=== PATIENT | female | born 1935 | race Caucasian/White ===

== ENCOUNTER 2017-12-12 06:24 | Day surgery (SDC) | payer MEDICARE ==
[~2017-12-12 06:24] MED LIST: Buffered Lidocaine 0.9% SYRIN* 5 ML/SYR SYRINGE INTRADERM ONE
[2017-12-12] MEDS ORDERED: Midazolam* 1 MG/ML 5 ML VIAL (5 MG) ONE (07:18)
[2017-12-12] MEDS ORDERED: fentaNYL* 50 MCG/ML 2 ML VIAL (100 MCG VIAL) ONE (07:18)
[2017-12-12 08:58] VITALS: BP 127/77
[2017-12-12] MEDS ORDERED: Ketorolac 0.5% OPHTH (NF) 0.5 % 5 ML BTL ONE (09:02)
[2017-12-12] MEDS ORDERED: Proparacaine 0.5% OPHTH.SOL* 15 ML BTL ONE (09:02)
[2017-12-12] MEDS ORDERED: Lidocaine 2% EPI 1:200000 MPF*10-20 ML VIAL ONE (09:02)
[2017-12-12] MEDS ORDERED: Lidocaine 1% MPF* 2 ML VIAL ONE (09:02)
[2017-12-12] MEDS ORDERED: Povidone Iodine 5% OPTH* 30 ML BTL ONE (09:02)
[2017-12-12] MEDS ORDERED: Phenylephrine 2.5% OPTH.SOL* 2 ML BTL ONE (09:02)
[2017-12-12] MEDS ORDERED: acetaZOLAMIDE TAB* 250 MG ONE (09:02)
[2017-12-12] MEDS ORDERED: Cyclopentolate 1% OPTH.SOL* 2 ML BTL ONE (09:02)
[2017-12-12] MEDS ORDERED: Neomycin/Polymy/Dex OPTH.SUSP* MAXITROL 0.1% 5 ML ONE (09:02)
--- NOTE | 2017-12-12 22:03 | OP ---
DATE OF OPERATION: 12/12/17 - [facility] DATE OF : 31 SURGEON: Manpreet Zee M.D. PREOPERATIVE DIAGNOSIS: Cataract, left eye. POSTOPERATIVE DIAGNOSIS: Cataract, left eye. OPERATIVE PROCEDURE: Extracapsular cataract extraction with intraocular lens implant, left eye. DESCRIPTION OF PROCEDURE: The patient was brought to the operating room after being given 1/2% Alcaine with epinephrine drops in the preoperative area. The eye was prepped and draped in the usual sterile fashion. Sterile drape and eyelid speculum were placed. Again, topical 1/2% Alcaine with epinephrine was given. A paracentesis incision was made at the 3 o'clock position with the No.75 blade. Clear cornea incision 2.2 x 2.2-mm was created at the 6 o'clock position starting at the anterior limbus using the 2.2-mm keratome. The anterior chamber was irrigated with 0.4 mL of 1% non-preservative intracameral lidocaine and filled with DisCoVisc. A capsulorrhexis was completed using the cystotome and the Utrata forceps. Hydrodissection was performed with balanced salt solution. The lens nucleus was removed with the Phacoemulsification handpiece without incident. Cortex was removed with the irrigation-aspiration handpiece. The capsular bag was re-inflated using DisCoVisc and an SN60WF 19.5 implant was inserted with the shooter. The irrigation-aspiration handpiece was used to remove all residual DisCoVisc. The eye was refilled with balanced salt solution and the wound checked and found to be watertight. Topical Maxitrol drops were given. [id number]/[facility] #: [id number] MTDD
== END 2017-12-12 08:56 | disposition home or self-care (01) ==
LOC: OREAST 06:24
PROVIDERS: ATTEND Specialist
DX: H25.812 Combined forms of age-related cataract, left eye (principal); E11.3293 Type 2 diabetes mellitus with mild nonproliferative diabetic retinopathy without macular edema, bilateral; Z79.84 Long term (current) use of oral hypoglycemic drugs; I10 Essential (primary) hypertension; E03.9 Hypothyroidism, unspecified; D64.9 Anemia, unspecified; I48.91 Unspecified atrial fibrillation; Z79.01 Long term (current) use of anticoagulants; I47.1 Supraventricular tachycardia; Z95.2 Presence of prosthetic heart valve
CPT/HCPCS: A9270-GY; J2250; J3010; V2632

== ENCOUNTER 2017-12-26 06:31 | Day surgery (SDC) | payer MEDICARE ==
[~2017-12-26 06:31] MED LIST changes: +Acetaminophen TAB* 325 MG PO PRN
[2017-12-26] MEDS ORDERED: Midazolam* 1 MG/ML 2 ML VIAL (2 MG) ONE (08:25)
[2017-12-26 08:59] VITALS: BP 130/91
[2017-12-26] MEDS ORDERED: Neomycin/Polymy/Dex OPTH.SUSP* MAXITROL 0.1% 5 ML ONE (13:25)
[2017-12-26] MEDS ORDERED: Ketorolac 0.5% OPHTH (NF) 0.5 % 5 ML BTL ONE (13:25)
[2017-12-26] MEDS ORDERED: Cyclopentolate 1% OPTH.SOL* 2 ML BTL ONE (13:25)
[2017-12-26] MEDS ORDERED: Phenylephrine 2.5% OPTH.SOL* 2 ML BTL ONE (13:25)
[2017-12-26] MEDS ORDERED: Povidone Iodine 5% OPTH* 30 ML BTL ONE (13:25)
[2017-12-26] MEDS ORDERED: Proparacaine 0.5% OPHTH.SOL* 15 ML BTL ONE (13:25)
[2017-12-26] MEDS ORDERED: Lidocaine 2% EPI 1:200000 MPF*10-20 ML VIAL ONE (13:25)
[2017-12-26] MEDS ORDERED: Lidocaine 1% MPF* 2 ML VIAL ONE (13:56)
--- NOTE | 2017-12-27 04:15 | OP ---
DATE OF OPERATION: 12/26/17 [facility] DATE OF : 31 SURGEON: Manpreet Zee M.D. PREOPERATIVE DIAGNOSIS: Cataract, right eye. POSTOPERATIVE DIAGNOSIS: Cataract, right eye. OPERATIVE PROCEDURE: Extracapsular cataract extraction with intraocular lens implant, right eye. DESCRIPTION OF PROCEDURE: The patient was brought to the operating room after being given 1/2% Alcaine with epinephrine drops in the preoperative area. The eye was prepped and draped in the usual sterile fashion. Sterile drape and eyelid speculum were placed. Again, topical 1/2% Alcaine with epinephrine was given. A paracentesis incision was made at the 9 o'clock position with the No.75 blade. Clear cornea incision 2.2 x 2.2-mm was created at the 12 o'clock position starting at the anterior limbus using the 2.2-mm keratome. The anterior chamber was irrigated with 0.4 mL of 1% non-preservative intracameral lidocaine and filled with DisCoVisc. A capsulorrhexis was completed using the cystotome and the Utrata forceps. Hydrodissection was performed with balanced salt solution. The lens nucleus was removed with the Phacoemulsification handpiece without incident. Cortex was removed with the irrigation-aspiration handpiece. The capsular bag was re-inflated using DisCoVisc and an [id number] 19.5 implant was inserted with the shooter. The irrigation-aspiration handpiece was used to remove all residual DisCoVisc. The eye was refilled with balanced salt solution and the wound checked and found to be watertight. Topical Maxitrol drops were given. [id number]/[facility] #: [id number] MTDD
== END 2017-12-26 09:13 | disposition home or self-care (01) ==
LOC: OREAST 06:31
PROVIDERS: ATTEND Specialist
DX: H25.811 Combined forms of age-related cataract, right eye (principal); E11.3293 Type 2 diabetes mellitus with mild nonproliferative diabetic retinopathy without macular edema, bilateral; Z79.84 Long term (current) use of oral hypoglycemic drugs; Z79.01 Long term (current) use of anticoagulants; I45.81 Long QT syndrome; I48.2 Chronic atrial fibrillation; Z95.2 Presence of prosthetic heart valve; I10 Essential (primary) hypertension; E03.9 Hypothyroidism, unspecified; G47.30 Sleep apnea, unspecified; M19.90 Unspecified osteoarthritis, unspecified site; Z79.899 Other long term (current) drug therapy
CPT/HCPCS: A9270-GY; J2250; V2632

== ENCOUNTER 2018-09-02 20:52 | Inpatient (IN) | payer MEDICARE ==
--- NOTE | 2018-09-02 21:45 | ED ---
Complex/Multi-Sys Presentation - HPI Summary HPI Summary: Patient is a 83 y/o F presenting to ED with complaints of fever, increased weakness, poor appetite, fatigue, and chills since yesterday. Daughter reports that she measured patient's temp to be 101.2. She denies cough, SOB. Hx of PNA, afib, atrial value replacement in 1999. Patient is on digoxin. On triage, pain is denied, nothing is noted to aggravate/alleviate Sx. Home medications and allergies are reviewed. - History Of Current Complaint Chief Complaint: EDFever Time Seen by Provider: 09/02/18 21:31 Hx Obtained From: Patient Onset/Duration: Lasting Days - since yesterday, Still Present Timing: Constant, Days - since yesterday Severity Currently: None Location: Negative Aggravating Factor(s): nothing Alleviating Factor(s): nothing Associated Signs And Symptoms: Positive: Weakness, Fever, Other - POSITIVE - POOR APPETITE, CHILLS, FATIGUE. Negative: SOB, Cough - Allergies/Home Medications Allergies/Adverse Reactions: Allergies Allergy/AdvReac Type Severity Reaction Status Date / Time diltiazem Allergy Chest Pain Verified 09/02/18 21:02 pneumococcal vaccine Allergy Swelling Verified 09/02/18 21:02 sulfamethoxazole Allergy See Comment Verified 09/02/18 21:02 [From Bactrim] trimethoprim [From Bactrim] Allergy See Comment Verified 09/02/18 21:02 acetaminophen AdvReac Unknown Verified 09/02/18 21:02 Reaction Details cephalexin AdvReac Diarrhea Verified 09/02/18 21:02 hydromorphone AdvReac Unknown Verified 09/02/18 21:02 Reaction Details lorazepam AdvReac Unknown Verified 09/02/18 21:02 Reaction Details morphine AdvReac Pain Verified 09/02/18 21:02 PMH/Surg Hx/FS Hx/Imm Hx Endocrine/Hematology History: Reports: Hx Anticoagulant Therapy - Warferin, Hx Diabetes, Hx Thyroid Disease - hypo, Hx Anemia Cardiovascular History: Reports: Hx Congestive Heart Failure, Hx Hypertension, Hx Peripheral Vascular Disease - Venous insufficiency bilateral lower extremities, Hx Rheumatic Fever - Age [age] years old, Hx Valvular Heart Disease - rheumatic, Other Cardiovascular Problems/Disorders - hemothorax Denies: Hx Pacemaker/ICD Respiratory History: Reports: Hx Chronic Obstructive Pulmonary Disease (COPD), Hx Sleep Apnea, Other Respiratory Problems/Disorders - SLEEP APNEA Denies: Hx Asthma GI History: Reports: Other GI Disorders - Diverticulosis Denies: Hx Irritable Bowel, Hx Jaundice History: Reports: Other Problems/Disorders - Frequent urination, UTI x1 Denies: Hx Renal Disease Musculoskeletal History: Reports: Hx Arthritis - Osteoarthritis, Hx Back Problems, Other Musculoskeletal History - R TKA Sensory History: Reports: Hx Cataracts - bilateral, Hx Contacts or Glasses - reading Denies: Hx Hearing Aid Opthamlomology History: Reports: Hx Cataracts - bilateral, Hx Contacts or Glasses - reading Neurological History: Denies: Hx Dementia, Hx Seizures, Other Neuro Impairments/Disorders Psychiatric History: Denies: Hx Substance Abuse - Cancer History Hx Chemotherapy: No Hx Radiation Therapy: No - Surgical History Surgery Procedure, Year, and Place: AVR [facility] 2000. TKR Right. Tubal Ligation. [place]. tonsilectomy as child Hx Anesthesia Reactions: No Infectious Disease History: No Infectious Disease History: Denies: Hx Clostridium Difficile, Hx Hepatitis, Hx Human Immunodeficiency Virus (HIV), Hx of Known/Suspected MRSA, Hx Shingles, Hx Tuberculosis, Hx Known/ Suspected VRE, Hx Known/Suspected VRSA, History Other Infectious Disease, Traveled Outside the [place] in Last 30 Days - Family History Known Family History: Negative: Blood Disorder - Social History Alcohol Use: None Substance Use Type: Reports: None Hx Tobacco Use: No Smoking Status (MU): Never Smoked Tobacco Have You Smoked in the Last Year: No Review of Systems Positive: Fever, Chills, Fatigue, Other - POSITIVE - WEAKNESS Negative: Shortness Of Breath, Cough Gastrointestinal: Other - POSITIVE - POOR APPETITE All Other Systems Reviewed And Are Negative: Yes Physical Exam - Summary Physical Exam Summary: VITAL SIGNS: Reviewed. GENERAL: Patient is a well-developed and morbidly obese female who is lying comfortable in the stretcher. Patient is not in any acute respiratory distress. HEAD AND FACE: No signs of trauma. No ecchymosis, hematomas or skull depressions. No sinus tenderness. EYES: PERRLA, EOMI x 2, No injected conjunctiva, no nystagmus. EARS: Hearing grossly intact. Ear canals and tympanic membranes are within normal limits. MOUTH: Oropharynx within normal limits. NECK: Supple, trachea is midline, no adenopathy, no JVD, no carotid bruit, no c- spine tenderness, neck with full ROM. CHEST: Symmetric, no tenderness at palpation LUNGS: decreased breath sounds bilaterally. No wheezing or crackles. CVS: Regular rate and rhythm, S1 and S2 present, no murmurs or gallops appreciated. ABDOMEN: Soft, non-tender. No signs of distention. No rebound no guarding, and no masses palpated. Bowel sounds are normal. EXTREMITIES: FROM in all major joints, no edema, no cyanosis or clubbing. NEURO: Alert and oriented x 3. No acute neurological deficits. Speech is normal and follows commands. SKIN: Dry and warm Triage Information Reviewed: Yes Vital Signs On Initial Exam: Initial Vitals Temp Pulse Resp BP Pulse Ox 101.4 F 93 20 130/70 95 09/02/18 20:57 09/02/18 20:57 09/02/18 20:57 09/02/18 20:57 09/02/18 20:57 Vital Signs Reviewed: Yes Diagnostics - Vital Signs Vital Signs Temp Pulse Resp BP Pulse Ox 09/02/18 20:57 101.4 F 93 20 130/70 95 - Laboratory Result Diagrams: 09/02/18 22:16 09/02/18 22:16 Lab Statement: Any lab studies that have been ordered have been reviewed, and results considered in the medical decision making process. - Radiology CXR Radiology Interpretation Completed By: ED Physician Summary of Radiographic Findings: BILATERAL BASILAR INFLITRATE, RIGHT MORE THAN LEFT - EKG 2305 Cardiac Rate: Other Rate - afib with rate of 91 BPM EKG Rhythm: Atrial Fibrillation Summary of EKG Findings: EKG showed afib with rate of 91 BPM Complex Multi-Symp Course/Dx Course Of Treatment: Patient is a 83 y/o F presenting to ED with complaints of fever, increased weakness, poor appetite, fatigue, and chills since yesterday. Daughter reports that she measured patient's temp to be 101.2. She denies cough , SOB. Hx of PNA, afib, atrial value replacement in 1999. Patient is on digoxin. On physical exam, patient is noted to be morbidly obese, decreased breath sounds bilaterally. Labs showed CRP 112.86, BNP 187, glucose 178, creatinine 1.02, chloride 96, sodium 129, INR 1.66, WBC 7.3, RBC 3.93. Digoxin 1.1. Influenza A, B negative. During ED course, patient was given Tylenol 650 mg PO ED, fluids, and Levaquin 750 mg IVpremix. EKG showed afib with rate of 91 BPM. CXR: BILATERAL BASILAR INFLITRATE, RIGHT MORE THAN LEFT. Patient was not given fluid as per sepsis proctol due to her cardiac history. - Diagnoses Provider Diagnoses: PNA (pneumonia) - Physician Notifications Discussed Care Of Patient With: Ashley Dunn Time Discussed With Above Provider: 22:57 Instructed by Provider To: Other - Patient's case was discussed with Dr. Dunn, Dr. Dunn accepts the patient for admission. Discharge - Sign-Out/Discharge Documenting (check all that apply): Patient Departure - admit - Discharge Plan Condition: Good Disposition: ADMITTED TO [facility] - Billing Disposition and Condition Condition: GOOD Disposition: Admitted to [facility] - Attestation Statements Document Initiated by Pranaye: Yes Documenting Scribe: PILI CARBONE Provider For Whom Pranaye is Documenting (Include Credential): MAGGIE BUENROSTRO MD Scribe Attestation: PILI Lyman , scribed for MAGGIE BUENROSTRO MD on 09/03/18 at 0430. Scribe Documentation Reviewed: Yes Provider Attestation: The documentation as recorded by the PILI lam accurately reflects the service I personally performed and the decisions made by me, MAGGIE BUENROSTRO MD Status of Scribe Document: Viewed
[2018-09-02] MEDS ORDERED: Acetaminophen TAB* 325 MG PO ONE (21:55)
[2018-09-02] MEDS ORDERED: Levofloxacin 750 MG IVPREMIX(* 750 MG/150 ML BAG IVPB ONE (21:56)
[2018-09-02] MEDS ORDERED: NS 0.9% 1000 ML* 1,000 ML IV ONE (22:14)
[2018-09-02 22:24] LABS: ABS Basophils 0.1 10^3/ul (0-0.2); ABS Eosinophils 0 10^3/ul (0-0.6); ABS Lymphocytes 0.9 10^3/ul (1.0-4.8); ABS Monocytes 1.3 10^3/ul (0-0.8); ABS Nucleated RBC 0 10^3/ul; Eosinophil % 0.3 %; Hematocrit 36 % (35-47); Hemoglobin 12.3 g/dl (12.0-16.0); Lymphocyte % 12.2 %; Mean Corpuscular HGB Conc 34 g/dl (31-36); Mean Corpuscular Hemoglobin 31 pg (27-31); Mean Corpuscular Volume 92 fL (80-97); Nucleated Red Blood Cells % 0; Platelet Count 167 10^3/ul (150-450); Red Blood Count 3.93 10^6/ul (4.00-5.40); Red Cell Distribution Width 14 % (10.5-15); White Blood Count 7.3 10^3/ul (3.5-10.8)
[2018-09-02 22:35] LABS: Activated Partial Thrombo Time 31.8 seconds (26.0-36.3); INR 1.66 (0.77-1.02)
[2018-09-02 22:39] LABS: Albumin 3.4 g/dL (3.2-5.2); Albumin/Globulin Ratio 0.8 (1-3); BUN/Creatinine Ratio 23.5 (8-20); C Reactive Protein 112.86 mg/L (<8.01); Calcium 9.2 mg/dL (8.6-10.3); EGFR African American 62.3 (>60); EGFR Non-African American 51.5 (>60); Globulin 4.2 g/dL (2-4); Potassium 4.3 mmol/L (3.5-5.0); Total Bilirubin 0.9 mg/dL (0.2-1.0); Total Protein 7.6 g/dL (6.4-8.9)
[2018-09-02 22:40] LABS: Influenza A Molecular NEGATIVE (Negative); Influenza B Molecular NEGATIVE (Negative)
[2018-09-02 22:52] LABS: Digoxin 1.1 ng/ml (0.8-2.0)
[2018-09-02] MEDS ORDERED: traMADol TAB* 50 MG PO PRN (23:19)
[2018-09-02] MEDS ORDERED: Albuterol/Ipratropium NEB.SOL* Albuterol 2.5 MG/Ipratropium 0.5 MG 3 ML INH PRN (23:25)
--- NOTE | 2018-09-02 23:25 | ADMNOTE ---
Subjective Date of Service: 09/02/18 Interval History: 83 year old Female with Past medical history of Long Qt syndrome, aortic valve replacement, hypertension, hypothyroidism who presents here because of fever. Patient has not been feeling well for the past few days, feeling tired, fatigues easily, and sleeping a lot. Today she took her temperature and was 101.1F at home, so decided to come to the ED. Over a week ago was having bad cold/sinus congestion. Reports no cough, no shortness of breath. She wears oxygen at night at 3Liters nasal canula. Family is at bedside, who reports that patient had an issue with acetaminophen in the past, and wants us to avoid it- It caused bleeding per family. Family History: Findings - Parents had heart issue Social History: Findings - Lives at home, Does not smoke, no alcohol use Past Medical History: Findings - Long QT syndrome, Hypertension, hypothyroidism , Hx of rheumatic heart disease, aortiv valve replacement, hysterectomy, cholecystectomy Review of Systems - Measurements Intake and Output: Intake and Output Last 24 Hours 08/31/18 09/01/18 09/02/18 09/03/18 06:59 06:59 06:59 06:59 Weight 229 lb - Review of Systems Constitutional Symptoms: Positive: Weakness, Fatigue, Fever Dermatology: Negative: Rash HEENT: Positive: Sinus Problem Negative: Change in Hearing, Vertigo Eyes: Negative: Change in Vision, Double Vision, Eye Pain Thyroid: Negative: Heat Intolerance, Sweatiness, Tremor Pulmonary: Negative: Cough, Sputum, Respiratory Distress Cardiology: Negative: Chest Pain, Shortness of Breath, Palpitations, Syncope Gastroenterology: Negative: Abdominal Pain, Nausea, Vomiting, Constipation Genital - Urinary: Negative: Dysuria, Hematuria, Polyuria Musculoskeletal: Negative: Joint Pain Endocrinology: Positive: Diabetes Mellitus Hematologic/Lymphatic: Positive: Use of Anticoagulant Neurology: Negative: Change in Balancing, Change in Memory Psychiatry: Negative: Anxiety, Depressed Mood Objective Active Medications: Digoxin (Lanoxin Tab*) 0.25 mg PO QPM [facility] Docusate Sodium (Colace Cap*) 100 mg PO BID [facility] Doxycycline Hyclate (Vibramycin Cap(*)) 100 mg PO BID [facility] Ceftriaxone Sodium 1 gm/ (Sodium Chloride) 50 mls @ 200 mls/hr IVPB Q24H [facility] Levothyroxine Sodium (Synthroid Tab*) 125 mcg PO QAM [facility] Non-Formulary Medication (Metoprolol Tartrate) 25 mg PO BID [facility] Tramadol HCl (Ultram*) 50 mg PO Q4HR PRN PRN Reason: PAIN Warfarin Sodium (Coumadin Tab(*)) 7 mg PO SEE INSTRUCTIONS [facility]; Protocol Vital Signs - 8 hr 09/02/18 09/02/18 20:57 22:39 Temperature 101.4 F 101.1 F Pulse Rate 93 99 Respiratory 20 22 Rate Blood Pressure 130/70 103/82 (mmHg) O2 Sat by Pulse 95 94 Oximetry Appearance: Elderly female, well developed, obese, lying in ER stretcher not in distress Ears/Nose/Mouth/Throat: Mucous Membranes Moist Respiratory: - - Mild tachypnea, no use of accessory muscles. Rhonchi at the right lower lobes Cardiovascular: RRR, - - Trace lower extremity edema, soft systolic murmur at the Right upper sternal border Skin: No Rash or Ulcers Neurological: Alert and Oriented x 3 Result Diagrams: 09/02/18 22:16 09/02/18 22:16 Microbiology and Other Data: Microbiology 09/02/18 22:15 Influenza Types A,B Antigen - Final Nasal Specimen received for Influenza A/B Molecular testing Diagnostic Imaging: Chest xray as read by me: Right lower lobe penumonia, official read pending Assess/Plan/Problems-Billing Assessment: 83 year old Female with history of Hypertension, aortic valve replacement, chornic nocturnal oxygen use, here with fever. Admitted for pneumonia - Patient Problems (1) Sepsis due to pneumonia Current Visit: Yes Status: Acute Code(s): J18.9 - PNEUMONIA, UNSPECIFIED ORGANISM; A41.9 - SEPSIS, UNSPECIFIED ORGANISM SNOMED Code(s): 07578612 Comment: Meets sepsis criteria with fever, and HR >90. Will treat with rocephin and doxycyline blood culture sent by ED check sputum culture, urine legionella and strep antigen incentive spirometry, and duonebs PRN (2) Hx of aortic valve replacement Current Visit: Yes Status: Chronic Code(s): Z95.2 - PRESENCE OF PROSTHETIC HEART VALVE SNOMED Code(s): 0187857610190 Comment: continue coumadin. (3) Diabetes Current Visit: Yes Status: Chronic Code(s): E11.9 - TYPE 2 DIABETES MELLITUS WITHOUT COMPLICATIONS SNOMED Code(s): 84923394 Comment: Hold metformin sliding scale insulin (4) HTN (hypertension) Current Visit: No Status: Chronic Code(s): I10 - ESSENTIAL (PRIMARY) HYPERTENSION SNOMED Code(s): 56773353 Comment: controlled (5) Long Q-T syndrome Current Visit: Yes Status: Acute Code(s): I45.81 - LONG QT SYNDROME SNOMED Code(s): 7685906 Comment: history fo long QT, will be cautious of using medicaitons that affect QT. (6) Hyponatremia Current Visit: Yes Status: Acute Code(s): E87.1 - HYPO-OSMOLALITY AND HYPONATREMIA SNOMED Code(s): 17018387 Comment: Hold lasix, monitor BMP. She did receive saline in the ED as a bolus, for now no more IV fluids, will monitor. (7) Full code status Current Visit: Yes Status: Chronic Code(s): Z78.9 - OTHER SPECIFIED HEALTH STATUS SNOMED Code(s): 024743374 Comment: Discussed with family and patient at bedside. They would like full code status. Health care proxy is Daughter: Samra, Medications/Allergies Medications: Home Medications Medication Instructions Recorded Confirmed Type Levothyroxine TAB* [Synthroid TAB*] 125 mcg PO QAM 06/30/12 09/02/18 History traMADol TAB* [Ultram*] 50 mg PO Q4HR PRN 06/30/12 09/02/18 History Warfarin TAB(*) [Coumadin TAB(*)] 7 mg PO SEE INSTRUCTIONS 09/18/13 09/02/18 History Digoxin TAB* [Lanoxin TAB*] 250 mcg PO QPM 05/25/15 09/02/18 History Docusate CAP* [Colace Cap*] 100 mg PO BID 05/25/15 09/02/18 History Furosemide [Lasix] 40 mg PO QAM 12/05/17 09/02/18 History Metoprolol Tartrate 25 mg PO BID 12/05/17 09/02/18 History Potassium Chloride 40 meq PO BID 12/05/17 09/02/18 History Vitamin K 150 mg PO QAM 12/05/17 09/02/18 History metFORMIN* 500 mg PO BID 12/05/17 09/02/18 History Allergies/Adverse Reactions: Allergies Allergy/AdvReac Type Severity Reaction Status Date / Time diltiazem Allergy Chest Pain Verified 09/02/18 21:02 pneumococcal vaccine Allergy Swelling Verified 09/02/18 21:02 sulfamethoxazole Allergy See Comment Verified 09/02/18 21:02 [From Bactrim] trimethoprim [From Bactrim] Allergy See Comment Verified 09/02/18 21:02 acetaminophen AdvReac Unknown Verified 09/02/18 21:02 Reaction Details cephalexin AdvReac Diarrhea Verified 09/02/18 21:02 hydromorphone AdvReac Unknown Verified 09/02/18 21:02 Reaction Details lorazepam AdvReac Unknown Verified 09/02/18 21:02 Reaction Details morphine AdvReac Pain Verified 09/02/18 21:02
[2018-09-02] MEDS ORDERED: Dextrose 50% Syringe 50 ML* 25 GM/50 ML SYRINGE IV PUSH PRN (23:36)
[2018-09-02] MEDS ORDERED: Warfarin TAB(*) 6 MG PO SCH (23:45)
[2018-09-03 00:09] LABS: Urine Appearance Cloudy; Urine Bacteria Absent (Absent); Urine Bilirubin Negative (Negative); Urine Blood Negative (Negative); Urine Color Yellow; Urine Glucose Negative (Negative); Urine Ketones Negative (Negative); Urine Nitrite Negative (Negative); Urine Protein 1+(30 mg/dL) (Negative); Urine Red Blood Cell Trace(0-2/hpf) (Absent); Urine Specific Gravity 1.016 (1.010-1.030); Urine Squamous Epithelial Cell Present (Absent); Urine Urobilinogen Negative (Negative); Urine White Blood Cell 1+(6-10/hpf) (Absent)
[2018-09-03] MEDS: cefTRIAXone(*) 1 GM in NS 0.9% 50 ML* 50 ML IVPB SCH ×2 (01:54→21:32)
[2018-09-03] MEDS: Levothyroxine TAB* 125 MCG TAB PO SCH (05:50)
[2018-09-03 08:27] LABS: ABS Basophils 0.1 10^3/ul (0-0.2); ABS Eosinophils 0.1 10^3/ul (0-0.6); ABS Lymphocytes 0.7 10^3/ul (1.0-4.8); ABS Neutrophils 3.3 10^3/ul (1.5-7.7); ABS Nucleated RBC 0 10^3/ul; Eosinophil % 1.3 %; Hematocrit 36 % (35-47); Hemoglobin 12.3 g/dl (12.0-16.0); Lymphocyte % 14.4 %; Mean Corpuscular HGB Conc 35 g/dl (31-36); Mean Corpuscular Hemoglobin 32 pg (27-31); Mean Corpuscular Volume 92 fL (80-97); Mean Platelet Volume 8.3 fL (7.4-10.4); Nucleated Red Blood Cells % 0.1; Platelet Count 147 10^3/ul (150-450); Red Blood Count 3.89 10^6/ul (4.00-5.40); Red Cell Distribution Width 15 % (10.5-15); White Blood Count 5.2 10^3/ul (3.5-10.8)
[2018-09-03 08:32] LABS: INR 1.69 (0.77-1.02)
[2018-09-03] MEDS: Metoprolol Tartrate TAB* 25 MG PO SCH ×2 (08:33→21:34)
[2018-09-03] MEDS: Docusate CAP* 100 MG PO SCH ×2 (08:33→21:32)
[2018-09-03] MEDS: DOXYcycline CAP(*) 100 MG PO SCH ×2 (08:33→21:33)
[2018-09-03] MEDS: Insulin LISPRO* 1 UNITS UNIT SUBCUT SCH ×3 (08:34→17:34)
[2018-09-03 08:47] LABS: BUN/Creatinine Ratio 22.2 (8-20); Calcium 9.1 mg/dL (8.6-10.3); EGFR African American 64.5 (>60); EGFR Non-African American 53.3 (>60); Potassium 3.7 mmol/L (3.5-5.0)
[2018-09-03] MEDS ORDERED: Warfarin TAB(*) 10 MG PO ONE (09:00)
[2018-09-03] MEDS: Digoxin TAB* 0.125 MG PO SCH (17:34)
[2018-09-04] MEDS: Levothyroxine TAB* 125 MCG TAB PO SCH (05:43)
[2018-09-04 06:26] LABS: Hematocrit 35 % (35-47); Mean Corpuscular HGB Conc 34 g/dl (31-36); Mean Corpuscular Hemoglobin 31 pg (27-31); Mean Corpuscular Volume 91 fL (80-97); Mean Platelet Volume 8.4 fL (7.4-10.4); Platelet Count 153 10^3/ul (150-450); Red Blood Count 3.85 10^6/ul (4.00-5.40); Red Cell Distribution Width 15 % (10.5-15); White Blood Count 5.1 10^3/ul (3.5-10.8)
[2018-09-04 06:34] LABS: INR 2.18 (0.77-1.02)
[2018-09-04 06:43] LABS: BUN/Creatinine Ratio 19.6 (8-20); C Reactive Protein 90.91 mg/L (<8.01); Calcium 9.2 mg/dL (8.6-10.3); EGFR Non-African American 54.6 (>60)
[2018-09-04 07:12] LABS: ABS Basophils 0 10^3/ul (0-0.2); ABS Eosinophils 0.1 10^3/ul (0-0.6); ABS Lymphocytes 1.1 10^3/ul (1.0-4.8); ABS Monocytes 1.2 10^3/ul (0-0.8); ABS Neutrophils 2.7 10^3/ul (1.5-7.7); ABS Nucleated RBC 0 10^3/ul; Eosinophil % 2.3 %; Lymphocyte % 20.5 %; Nucleated Red Blood Cells % 0
[2018-09-04] MEDS: Insulin LISPRO* 1 UNITS UNIT SUBCUT SCH ×3 (09:17→17:37)
[2018-09-04] MEDS: Docusate CAP* 100 MG PO SCH ×2 (09:17→20:06)
[2018-09-04] MEDS: Metoprolol Tartrate TAB* 25 MG PO SCH ×2 (09:17→20:11)
[2018-09-04] MEDS: DOXYcycline CAP(*) 100 MG PO SCH ×2 (09:17→20:06)
[2018-09-04] MEDS: Furosemide TAB* 40 MG PO SCH (10:28)
[2018-09-04] MEDS: metFORMIN* 500 MG TAB PO SCH ×2 (10:28→17:37)
[2018-09-04] MEDS ORDERED: Warfarin TAB(*) 3 MG PO SCH (11:00)
[2018-09-04] MEDS ORDERED: Warfarin TAB(*) 4 MG PO SCH (11:00)
[2018-09-04] MEDS: Digoxin TAB* 0.125 MG PO SCH (17:37)
[2018-09-04] MEDS: cefTRIAXone(*) 1 GM in NS 0.9% 50 ML* 50 ML IVPB SCH (20:06)
[2018-09-05] MEDS: Levothyroxine TAB* 125 MCG TAB PO SCH (05:41)
[2018-09-05 06:24] LABS: INR 2.65 (0.77-1.02)
[2018-09-05] MEDS: Insulin LISPRO* 1 UNITS UNIT SUBCUT SCH ×2 (08:38→13:06)
[2018-09-05] MEDS: Furosemide TAB* 40 MG PO SCH (08:38)
[2018-09-05] MEDS: metFORMIN* 500 MG TAB PO SCH (08:38)
[2018-09-05] MEDS: DOXYcycline CAP(*) 100 MG PO SCH (08:38)
[2018-09-05] MEDS: Metoprolol Tartrate TAB* 25 MG PO SCH (08:38)
[2018-09-05] MEDS: Docusate CAP* 100 MG PO SCH (08:38)
[2018-09-05 12:56] VITALS: BP 104/41
[2018-09-05] MEDS ORDERED: Warfarin TAB(*) 4 MG PO SCH (17:00)
--- NOTE | 2018-09-05 21:09 | DS ---
DISCHARGE SUMMARY: DATE OF ADMISSION: 09/02/18 DATE OF DISCHARGE: 09/05/18 DISCHARGE DIAGNOSES: 1. Right middle lobe pneumonia. 2. Sepsis due to pneumonia. 3. Subtherapeutic INR. 4. Chronic atrial fibrillation. 5. Status post aortic valve replacement. 6. Type 2 diabetes mellitus. 7. History of hypertension. 8. Long QT syndrome. 9. Hypothyroidism. 10. History of recent viral illness. HISTORY: Thuy High is an 83-year-old woman admitted with pneumonia. Please see the dictated admission note for details of the present illness, past medical history, family history, social and personal history, review of systems , and physical examination. LABORATORY DATA: CBC on 09/02/18: WBC 7.3, H and H 12.3/36, MCV is 92, PLT 167K. CBC on 09/03/18: WBC 5.2, H and H 12.3/36, MCV 92, PLT 147K. CBC on : WBC 5.1, H and H 12/35, MCV 91, PLT 153K. INR 1.66 on 09/02/18, 1.69 on 09/03/18, 2.18 on 09/04/18, 2.65 on 09/05/18. Chemistries on admission: Sodium 129, potassium 4.3, chloride 96, CO2 27, BUN/creatinine 24/1.02, glucose 178. Rest of her comprehensive metabolic panel was within normal limits except for globulin elevated at 4.2. C-reactive protein was 112.86 on 09/02/18, 90.91 on 09/04/18. BNP was 187 on 09/02/18. Urinalysis: Yellow, cloudy, specific gravity 1.016, pH 5, dipstick positive for protein 1+, wbc's 1+, squamous epithelial cells present. Digoxin 1.1. Strep, pneumo, and legionella antigen screens in the urine were negative. Urine culture was no growth. Flu swab was negative. Chest x-ray on 09/02/18 showed an infiltrate in the right mid lung field and left lower lobe lung parenchymal scarring. Chest x-ray on 09/05/18, showed persistent right mid lung consolidation, recommend followup until resolution. EKG on 09/02/18 showed atrial fibrillation, PVC, LVH. HOSPITAL COURSE: The patient was initially evaluated in the emergency room. During that time, she was given Tylenol 650 mg, fluids, Levaquin 750 mg. She was not given fluid as per sepsis protocol due to her cardiac history. She was admitted to the floor. Initial assessment by the admitting provider was that she had pneumonia. She was continued on warfarin for DVT prophylaxis. She was full code. Initially, her furosemide was held, then restarted. She was placed on telemetry. She was felt to meet sepsis criteria with fever and heart rate greater than 90. She was treated with ceftriaxone and doxycycline after cultures were done. Incentive spirometry and DuoNebs as needed were ordered. She improved clinically. She defervesced. She felt better. Her appetite improved. Her warfarin dose was increased to bring her INR up to the therapeutic range of 2.5 to 3.5. She was feeling well by the time of discharge. She was seen with her daughter. Her vital signs were blood pressure of 104/41, pulse 82, respirations 20, temperature 97.4. She had not had a fever since 09/03/18. She had persistent rales on armando right anteriorly. She is being switched to oral antibiotics at this time. At the time of discharge, her activities are as tolerated. MEDICATIONS: As follows: 1. Warfarin 8 mg alternating with 7 mg as previously directed. 2. Cefuroxime 500 mg twice a day for 5 days. 3. Doxycycline 100 mg twice a day for 5 days. 4. Furosemide 40 mg daily. 5. Metformin 500 mg twice a day. 6. Docusate 100 mg twice a day. 7. Levothyroxine 125 mcg daily. 8. Digoxin 0.125 mg daily and extra half once a week.. 9. Vitamin K 150 mg daily. 10. Potassium chloride 20 mEq twice a day. 11. Metoprolol 25 mg twice a day. DISCHARGE INSTRUCTIONS: The patient is to follow up with me in 4 to 7 days. She is to have an INR checked at home by her daughter tomorrow. Diet is as usual. [id number]/[facility] #: [id number] MTDD
== END 2018-09-05 15:20 | disposition home or self-care (01) | DRG 871 ==
LOC: ED 20:52 → MEDTELE 23:21
PROVIDERS: ADMIT Internal Medicine; ATTEND Internal Medicine Geriatric Medicine
DX: A41.9 Sepsis, unspecified organism (principal); J18.1 Lobar pneumonia, unspecified organism; E87.1 Hypo-osmolality and hyponatremia; Z68.41 Body mass index [BMI] 40.0-44.9, adult; J44.0 Chronic obstructive pulmonary disease with (acute) lower respiratory infection; R79.1 Abnormal coagulation profile; I48.2 Chronic atrial fibrillation; E03.9 Hypothyroidism, unspecified; I49.3 Ventricular premature depolarization; I51.7 Cardiomegaly; I11.0 Hypertensive heart disease with heart failure; I50.9 Heart failure, unspecified; E11.51 Type 2 diabetes mellitus with diabetic peripheral angiopathy without gangrene; G47.30 Sleep apnea, unspecified; Z96.651 Presence of right artificial knee joint; E11.36 Type 2 diabetes mellitus with diabetic cataract; M19.90 Unspecified osteoarthritis, unspecified site; E66.01 Morbid (severe) obesity due to excess calories; Z79.84 Long term (current) use of oral hypoglycemic drugs; Z79.01 Long term (current) use of anticoagulants; Z98.51 Tubal ligation status; Z90.49 Acquired absence of other specified parts of digestive tract; Z99.81 Dependence on supplemental oxygen; Z88.5 Allergy status to narcotic agent; Z95.2 Presence of prosthetic heart valve; Z90.710 Acquired absence of both cervix and uterus; Z88.8 Allergy status to other drugs, medicaments and biological substances; Z88.7 Allergy status to serum and vaccine
CPT/HCPCS: 36415; 71045; 71046; 80048; 80053; 80162; 81003; 81015; 83605; 83880; 85025; 85610; 85730; 86140; 87040; 87086; 87899; 93005; 99285; A9270-GY; J0696

== ENCOUNTER → 2018-10-31 19:32 | Emergency (ER) | payer MEDICARE ==
[~2018-10-31 19:32] MED LIST changes: -Acetaminophen TAB* 325 MG PO PRN; -Buffered Lidocaine 0.9% SYRIN* 5 ML/SYR SYRINGE INTRADERM ONE; +predniSONE TAB* 20 MG PO ONE
--- NOTE | 2018-10-31 22:49 | ED ---
Upper Extremity Pain - HPI Summary HPI Summary: 83-year-old female presents with family for complaints of onset of right shoulder pain that started around 6:30 this afternoon. Describes as a nonradiating sharp pain that worsens with any type of movement. Patient took 1 dose of her tramadol prior to arrival with little relief in pain. Denies injury , chest pain, shortness of breath, abdominal pain, nausea, vomiting, numbness, tingling, or weakness of the right upper extremity. - History of Current Complaint Chief Complaint: EDExtremityUpper Stated Complaint: PAIN IN RIGHT SHOULDER PER PT Time Seen by Provider: 10/31/18 21:11 Hx Obtained From: Patient - Allergies/Home Medications Allergies/Adverse Reactions: Allergies Allergy/AdvReac Type Severity Reaction Status Date / Time diltiazem Allergy Chest Pain Verified 10/31/18 20:21 pneumococcal vaccine Allergy Swelling Verified 10/31/18 20:21 sulfamethoxazole Allergy See Comment Verified 10/31/18 20:21 [From Bactrim] trimethoprim [From Bactrim] Allergy See Comment Verified 10/31/18 20:21 acetaminophen AdvReac Unknown Verified 10/31/18 20:21 Reaction Details cephalexin AdvReac Diarrhea Verified 10/31/18 20:21 hydromorphone AdvReac Unknown Verified 10/31/18 20:21 Reaction Details lorazepam AdvReac Unknown Verified 10/31/18 20:21 Reaction Details morphine AdvReac Pain Verified 10/31/18 20:21 PMH/Surg Hx/FS Hx/Imm Hx Endocrine/Hematology History: Reports: Hx Anticoagulant Therapy - Warferin, Hx Diabetes, Hx Thyroid Disease - hypo, Hx Anemia Cardiovascular History: Reports: Hx Congestive Heart Failure, Hx Hypertension, Hx Peripheral Vascular Disease - Venous insufficiency bilateral lower extremities, Hx Rheumatic Fever - Age [age] years old, Hx Valvular Heart Disease - rheumatic, Other Cardiovascular Problems/Disorders - hemothorax Denies: Hx Pacemaker/ICD Respiratory History: Reports: Hx Chronic Obstructive Pulmonary Disease (COPD), Hx Sleep Apnea, Other Respiratory Problems/Disorders - SLEEP APNEA Denies: Hx Asthma GI History: Reports: Other GI Disorders - Diverticulosis Denies: Hx Irritable Bowel, Hx Jaundice History: Reports: Other Problems/Disorders - Frequent urination, UTI x1 Denies: Hx Renal Disease Musculoskeletal History: Reports: Hx Arthritis - Osteoarthritis, Hx Back Problems, Other Musculoskeletal History - R TKA Sensory History: Reports: Hx Cataracts - bilateral, Hx Contacts or Glasses - reading Denies: Hx Hearing Aid Opthamlomology History: Reports: Hx Cataracts - bilateral, Hx Contacts or Glasses - reading Neurological History: Denies: Hx Dementia, Hx Seizures, Other Neuro Impairments/Disorders Psychiatric History: Denies: Hx Anxiety, Hx Substance Abuse - Cancer History Hx Chemotherapy: No Hx Radiation Therapy: No - Surgical History Surgery Procedure, Year, and Place: [facility] 2000. TKR Right. Tubal Ligation. elvin. tonsilectomy as child Hx Anesthesia Reactions: No Infectious Disease History: No Infectious Disease History: Denies: Hx Clostridium Difficile, Hx Hepatitis, Hx Human Immunodeficiency Virus (HIV), Hx of Known/Suspected MRSA, Hx Shingles, Hx Tuberculosis, Hx Known/ Suspected VRE, Hx Known/Suspected VRSA, History Other Infectious Disease, Traveled Outside the [place] in Last 30 Days - Family History Known Family History: Negative: Blood Disorder - Social History Alcohol Use: None Substance Use Type: Reports: None Hx Tobacco Use: No Smoking Status (MU): Never Smoked Tobacco Have You Smoked in the Last Year: No Review of Systems Constitutional: Negative Negative: Palpitations, Chest Pain Negative: Shortness Of Breath, Cough Negative: Abdominal Pain, Vomiting, Diarrhea, Nausea Genitourinary: Negative Positive: Other - See HPI Negative: Rash, Bruising Negative: Paresthesia, Numbness All Other Systems Reviewed And Are Negative: Yes Physical Exam - Summary Physical Exam Summary: GENERAL APPEARANCE: Alert and cooperative, obese elderly female who appears to be in no acute distress. NECK: Neck supple, non-tender. CARDIAC: Normal S1 and S2. No S3, S4 or murmurs. Rhythm is regular. There is no peripheral edema, cyanosis or pallor. Extremities are warm and well perfused. Capillary refill is less than 2 seconds. Peripheral pulses intact. LUNGS: Clear to auscultation without rales, rhonchi, wheezing or diminished breath sounds. ABDOMEN: Positive bowel sounds. Soft, nondistended, nontender. No guarding or rebound. No masses or hepatosplenomegally. MUSKULOSKELETAL: Tenderness of the anterior right shoulder over the subacromial bursa. Range of motion was limited due to pain. Circulation and sensation were intact distally. Normal muscular development. SKIN: Skin normal color, texture and turgor with no lesions or eruptions. Triage Information Reviewed: Yes Vital Signs On Initial Exam: Initial Vitals Temp Pulse Resp BP Pulse Ox 98.4 F 84 16 131/79 97 10/31/18 20:15 10/31/18 20:15 10/31/18 20:15 10/31/18 20:15 10/31/18 20:15 Vital Signs Reviewed: Yes Diagnostics - Vital Signs Vital Signs Temp Pulse Resp BP Pulse Ox 10/31/18 20:15 98.4 F 84 16 131/79 97 - Laboratory Lab Statement: Any lab studies that have been ordered have been reviewed, and results considered in the medical decision making process. - Radiology No standard instances Radiology Interpretation Completed By: ED Physician - No acute fracture or dislocation. Course/Dx - Course Course Of Treatment: 83-year-old female presents with family for complaints of onset of right shoulder pain that started around 6:30 this afternoon. Describes as a nonradiating sharp pain that worsens with any type of movement. Patient took 1 dose of her tramadol prior to arrival with little relief in pain. Denies injury, chest pain, shortness of breath, abdominal pain, nausea, vomiting, numbness, tingling, or weakness of the right upper extremity. Afebrile. Vital signs stable. Exam is remarkable for tenderness of the anterior right shoulderover the subacromial bursa. Range of motion was limited due to pain. Circulation and sensation were intact distally. X-ray of the right shoulder preliminary read by myself as no acute fracture or dislocation. I suspect that the pain is either arthritic in nature or may represent some bursitis of the subacromial bursa. Patient has multiple medication allergies as well as significant cardiac history which limits choice pain medication. Discussed with the patient and family using a short course of prednisone to help reduce inflammation to which they are agreeable. She was given a dose of prednisone 20 mg in the emergency room and prescribed prednisone 20 mg daily for the next 2 days. She is to continue to use her tramadol as needed for pain. She was provided with arm sling for support and comfort to be used for the next 2 days. Also discussed and demonstrated passive range of motion exercises which she should perform every couple of hours to prevent freezing of the shoulder. She is to follow-up with her primary care provider in 3 days especially if symptoms do not improve. Anticipatory guidance and warning symptoms reviewed with the patient and family. Verbalized understanding and agreement with plan of care. - Diagnoses Differential Diagnosis/HQI/PQRI: Positive: Arthritis, Bursitis, Contusion, Fracture (Closed), Sprain Provider Diagnoses: Acute pain of right shoulder Discharge - Sign-Out/Discharge Documenting (check all that apply): Patient Departure Patient Received Moderate/Deep Sedation with Procedure: No - Discharge Plan Condition: Stable Disposition: HOME Prescriptions: predniSONE [Prednisone 20 MG TAB] 20 mg PO DAILY #2 tablet Patient Education Materials: Shoulder Pain (ED) Referrals: Bridgette Byrnes MD [Primary Care Provider] - 3 Days Additional Instructions: [facility] showed atrial fibrillation but no acute changes. The x-ray of the shoulder showed no fracture or dislocation. The x-ray will be reviewed by the radiologist tomorrow and we will contact you if there is any findings that would change the plan of care. I suspect that your pain is some inflammation of the shoulder. We will start her on prednisone 20 mg daily 3 days to try to decrease the inflammation. You were given a first dose in the [facility]. You were provided an arm sling to wear for comfort. You should still take her arm out of the sling every couple of hours and perform gentle range of motion exercises and we discussed to avoid shoulder from freezing up. Do not use the sling for more than 2 days but you should continue range of motion exercises. You may continue to use your tramadol as prescribed for pain. Follow-up with your primary care provider in 3 days for recheck of symptoms especially if there is no improvement. Return to the emergency room if you have chest pain, shortness of breath, worsening pain, he developed numbness or tingling in the arm, or any worsening of symptoms. - Billing Disposition and Condition Condition: STABLE Disposition: Home
[2018-10-31 23:09] VITALS: BP 111/65
== END | disposition home or self-care (01) ==
LOC: ED 19:32
DX: M25.511 Pain in right shoulder (principal); I10 Essential (primary) hypertension; Z79.01 Long term (current) use of anticoagulants; I50.9 Heart failure, unspecified; M85.80 Other specified disorders of bone density and structure, unspecified site; M19.90 Unspecified osteoarthritis, unspecified site
CPT/HCPCS: 93005; 99282; J7512

== ENCOUNTER 2019-03-27 23:56 | Emergency (ER) | payer MEDICARE ==
[2019-03-28] MEDS ORDERED: Piperacillin/Tazobac ADVAN(*) 3.375 GM in NS 0.9% 100 ML* 100 ML IVPB ONE (00:54)
[2019-03-28 01:04] LABS: Hematocrit 38 % (35-47); Hemoglobin 13.2 g/dL (12.0-16.0); Mean Corpuscular HGB Conc 34 g/dL (31-36); Mean Corpuscular Hemoglobin 32 pg (27-31); Mean Corpuscular Volume 93 fL (80-97); Mean Platelet Volume 8.2 fL (7.4-10.4); Platelet Count 218 10^3/uL (150-450); Red Blood Count 4.14 10^6 /uL (3.70-4.87); Red Cell Distribution Width 15 % (10-15); White Blood Count 6.7 10^3/uL (3.5-10.8)
[2019-03-28 01:21] LABS: BUN/Creatinine Ratio 17.9 (8-20); Calcium 9.7 mg/dL (8.6-10.3); EGFR African American 53.2 (>60); Potassium 4.4 mmol/L (3.5-5.0)
[2019-03-28 01:37] LABS: ABS Eosinophils 0.3 10^3/ul (0-0.6); ABS Lymphocytes 1.6 10^3/ul (1.0-4.8); ABS Monocytes 0.9 10^3/ul (0-0.8); ABS Neutrophils 3.6 10^3/ul (1.5-7.7); Eosinophil % 5.3 %; Lymphocyte % 24.7 %
--- NOTE | 2019-03-28 01:57 | ED ---
Skin Complaint - HPI Summary HPI Summary: Patient is a 83 y/o F presenting to ED with complaints of worsening cellulitis at her RLE. She states that she is being treated with Doxycycline for her cellulitis by her PCP. Patient notes that she has taken 3 doses of this antibiotic and has been on it for 1.5 days. She denies fever, chills, and any other associated symptoms. Patient states that she had one episode of cellulitis previously but notes that this present episode has been more severe. Patient is noted to have chronic edema, but has worsened in right leg. Patient had called her daughter about her Sx, who subsequently brought the patient to the ED. On triage, pain is rated 6/10, nothing is noted to aggravate/alleviate Sx. Home medications and allergies are reviewed. - History of Current Complaint Chief Complaint: EDExtremityLower Time Seen by Provider: 03/28/19 00:38 Stated Complaint: CELLULITIS PER PT DAUGHTER Hx Obtained From: Patient Onset/Duration: Started Days Ago, Still Present Skin Exposure Onset/Duration: Days Ago Timing: Constant, Lasting Days Onset Severity: Mild Current Severity: Moderate Pain Intensity: 6 Pain Scale Used: 0-10 Numeric Skin Location: Leg - RLE Character: Swelling, Pain, Redness Aggravating Symptom(s): Nothing Alleviating Symptom(s): Nothing Associated Signs & Symptoms: Negative - Additional Pertinent History Primary Care Physician: BRAD - Allergy/Home Medications Allergies/Adverse Reactions: Allergies Allergy/AdvReac Type Severity Reaction Status Date / Time diltiazem Allergy Chest Pain Verified 10/31/18 20:21 pneumococcal vaccine Allergy Swelling Verified 10/31/18 20:21 sulfamethoxazole Allergy See Comment Verified 10/31/18 20:21 [From Bactrim] trimethoprim [From Bactrim] Allergy See Comment Verified 10/31/18 20:21 acetaminophen AdvReac Unknown Verified 10/31/18 20:21 Reaction Details cephalexin AdvReac Diarrhea Verified 10/31/18 20:21 hydromorphone AdvReac Unknown Verified 10/31/18 20:21 Reaction Details lorazepam AdvReac Unknown Verified 10/31/18 20:21 Reaction Details morphine AdvReac Pain Verified 10/31/18 20:21 Home Medications: Home Medications Warfarin TAB(*) [Coumadin TAB(*)] 8 mg PO EVERY OTHER DAY 03/28/19 [History Confirmed 03/28/19] PMH/Surg Hx/FS Hx/Imm Hx Endocrine/Hematology History: Reports: Hx Anticoagulant Therapy - Warferin, Hx Diabetes, Hx Thyroid Disease - hypo, Hx Anemia Cardiovascular History: Reports: Hx Congestive Heart Failure, Hx Hypertension, Hx Peripheral Vascular Disease - Venous insufficiency bilateral lower extremities, Hx Rheumatic Fever - Age [age] years old, Hx Valvular Heart Disease - rheumatic, Other Cardiovascular Problems/Disorders - hemothorax Denies: Hx Pacemaker/ICD Respiratory History: Reports: Hx Chronic Obstructive Pulmonary Disease (COPD), Hx Sleep Apnea, Other Respiratory Problems/Disorders - SLEEP APNEA Denies: Hx Asthma GI History: Reports: Other GI Disorders - Diverticulosis Denies: Hx Irritable Bowel, Hx Jaundice History: Reports: Other Problems/Disorders - Frequent urination, UTI x1 Denies: Hx Renal Disease Musculoskeletal History: Reports: Hx Arthritis - Osteoarthritis, Hx Back Problems, Other Musculoskeletal History - R TKA Sensory History: Reports: Hx Cataracts - bilateral, Hx Contacts or Glasses - reading Denies: Hx Hearing Aid Opthamlomology History: Reports: Hx Cataracts - bilateral, Hx Contacts or Glasses - reading Neurological History: Denies: Hx Dementia, Hx Seizures, Other Neuro Impairments/Disorders Psychiatric History: Denies: Hx Anxiety, Hx Substance Abuse - Cancer History Hx Chemotherapy: No Hx Radiation Therapy: No - Surgical History Surgery Procedure, Year, and Place: [facility]. TKR Right. Tubal Ligation. elvin. tonsilectomy as child Hx Anesthesia Reactions: No Infectious Disease History: No Infectious Disease History: Denies: Hx Clostridium Difficile, Hx Hepatitis, Hx Human Immunodeficiency Virus (HIV), Hx of Known/Suspected MRSA, Hx Shingles, Hx Tuberculosis, Hx Known/ Suspected VRE, Hx Known/Suspected VRSA, History Other Infectious Disease, Traveled Outside the [place] in Last 30 Days - Family History Known Family History: Negative: Blood Disorder - Social History Alcohol Use: None Substance Use Type: Reports: None Hx Tobacco Use: No Smoking Status (MU): Never Smoked Tobacco Have You Smoked in the Last Year: No Review of Systems Negative: Fever, Chills Positive: Edema - RLE Skin: Other - positive - cellulitis at RLE All Other Systems Reviewed And Are Negative: Yes Physical Exam - Summary Physical Exam Summary: Constitutional: Well-developed, Well-nourished, Alert. (-) Distressed Skin: Warm, Dry HENT: Normocephalic; Atraumatic Eyes: Conjunctiva normal Neck: Musculoskeletal ROM normal neck. (-) JVD, (-) Stridor, (-) Tracheal deviation Cardio: Rhythm regular, rate normal, Heart sounds normal; Intact distal pulses; The pedal pulses are 2+ and symmetric. Radial pulses are 2+ and symmetric. Pulmonary/Chest wall: Effort normal. (-) Respiratory distress, (-) Wheezes, (-) Rales Abd: Soft, (-) tenderness, (-) Distension, (-) Guarding, (-) Rebound Musculoskeletal: RLE is warm, red, edematous, and "angry" from ankle to distal aspect of her knee. No areas of fluctuance or induration to suggest underlying fluid collection. Patient has BLE, but edema is worse on right. Neuro: Alert, Oriented x3 Psych: Mood and affect Normal Triage Information Reviewed: Yes Vital Signs On Initial Exam: Initial Vitals Temp Pulse Resp BP Pulse Ox 97.7 F 96 16 171/101 97 03/27/19 23:57 03/27/19 23:57 03/27/19 23:57 03/27/19 23:57 03/27/19 23:57 Vital Signs Reviewed: Yes Diagnostics - Vital Signs Vital Signs Temp Pulse Resp BP Pulse Ox 03/28/19 01:26 85 117/58 97 03/28/19 01:08 97.9 F 03/28/19 01:00 81 96 03/28/19 00:58 81 121/74 97 03/28/19 00:29 84 97 03/28/19 00:26 80 137/90 97 03/27/19 23:57 97.7 F 96 16 171/101 97 - Laboratory Lab Results: Lab Results 03/28/19 03/28/19 Range/Units 00:58 00:58 WBC 6.7 (3.5-10.8) 10^3/uL RBC 4.14 (3.70-4.87) 10^6 /uL Hgb 13.2 (12.0-16.0) g/dL Hct 38 (35-47) % MCV 93 (80-97) fL MCH 32 H (27-31) pg MCHC 34 (31-36) g/dL RDW 15 (10-15) % Plt Count 218 (150-450) 10^3/uL MPV 8.2 (7.4-10.4) fL Neut % (Auto) 56.5 % Lymph % (Auto) 24.7 % [place] % (Auto) 13.3 % Eos % (Auto) 5.3 % Baso % (Auto) 0.2 % Absolute Neuts (auto) 3.6 (1.5-7.7) 10^3/ul Absolute Lymphs (auto) 1.6 (1.0-4.8) 10^3/ul Absolute Monos (auto) 0.9 H (0-0.8) 10^3/ul Absolute Eos (auto) 0.3 (0-0.6) 10^3/ul Absolute Basos (auto) 0.0 (0-0.2) 10^3/ul Absolute Nucleated RBC 0.0 10^3/ul Nucleated RBC % 0.0 Sodium 134 L (135-145) mmol/L Potassium 4.4 (3.5-5.0) mmol/L Chloride 100 L (101-111) mmol/L Carbon Dioxide 28 (22-32) mmol/L Anion Gap 6 (2-11) mmol/L BUN 21 (6-24) mg/dL Creatinine 1.17 H (0.51-0.95) mg/dL Est GFR ( Amer) 53.2 (>60) Est GFR (Non-Af Amer) 44.0 (>60) BUN/Creatinine Ratio 17.9 (8-20) Glucose 151 H (70-100) mg/dL Calcium 9.7 (8.6-10.3) mg/dL Result Diagrams: 03/28/19 00:58 03/28/19 00:58 Lab Statement: Any lab studies that have been ordered have been reviewed, and results considered in the medical decision making process. - Ultrasound RLE Venous Doppler Study Ultrasound Interpretation Completed By: Radiologist Summary of Ultrasound Findings: IMPRESSION: No acute findings. No evidence of deep vein thrombosis. THIS REPORT WAS REVIEWED BY DR. MAGAAÑ. Re-Evaluation - Re-Evaluation First Eval Re-Evaluation Time: 02:58 Comment: Discussed plan of disposition, pending US. Patient is on Coumadin and takes Vitamin K supplements. Patient has a mechanical valve. She has follow-up appointment with Dr. Angeles in a week. Heart and lungs are clear. Patient denies chills and fever. Multiple temporal temperatures obtained were negative for fever. Patient has no white count. INR to be obtained. Course/Dx - Course Course Of Treatment: Patient is a 83 y/o F presenting to ED with complaints of worsening cellulitis at her RLE. She states that she is being treated with Doxycycline for her cellulitis by her PCP. Patient notes that she has taken 3 doses of this antibiotic and has been on it for 1.5 days. She denies fever, chills, and any other associated symptoms. On physical exam, RLE is warm, red, edematous, and "angry" from ankle to distal aspect of her knee. No areas of fluctuance or induration to suggest underlying fluid collection. RLE US to r/o DVT, basic labs to be done, patient given Zosyn 100 mls @ 200 mls/hr IVPB. Patient had no white count. INR was 2.6. US showed no acute findings. No evidence of deep vein thrombosis. Afflicted area was demarcated with marker, patient was given strict instructions to return to ED if area expanded. Patient was prescribed augmentin for ten days. She will follow up with PCP in seven days. Dx of RLE cellulitis/lymphangitis. - Diagnoses Provider Diagnoses: Cellulitis of right lower extremity Discharge - Sign-Out/Discharge Documenting (check all that apply): Patient Departure - discharge Patient Received Moderate/Deep Sedation with Procedure: No - Discharge Plan Condition: Stable Disposition: HOME Prescriptions: Amoxicillin/Clavulanate TAB* [Augmentin TAB 875*] 875 mg PO BID 10 Days #20 tab Patient Education Materials: Cellulitis (ED), Lymphangitis (ED) Referrals: Bridgette Byrnes MD [Primary Care Provider] - - Billing Disposition and Condition Condition: STABLE Disposition: Home - Attestation Statements Document Initiated by Scribe: Yes Documenting Scribe: PILI CARBONE Provider For Whom Leonila is Documenting (Include Credential): KAELYN MAGAÑA MD Scribe Attestation: PILI Lyman, scribed for KAELYN MAGAÑA MD on 03/28/19 at 0652. Scribe Documentation Reviewed: Yes Provider Attestation: The documentation as recorded by the PILI lam accurately reflects the service I personally performed and the decisions made by me, KAELYN MAGAÑA MD Status of Scribe Document: Viewed
[2019-03-28 04:06] LABS: Activated Partial Thrombo Time 45.3 seconds (26.0-38.0); INR 2.6 (0.82-1.09)
[2019-03-28] MEDS ORDERED: Amoxicillin/Clavulanate TAB* 875 MG PO ONE (04:54)
[2019-03-28 05:07] VITALS: BP 121/70
== END 2019-03-28 05:05 | disposition home or self-care (01) ==
LOC: ED 23:56
DX: L03.115 Cellulitis of right lower limb (principal); E11.9 Type 2 diabetes mellitus without complications; E03.9 Hypothyroidism, unspecified; D64.9 Anemia, unspecified; I50.9 Heart failure, unspecified; I11.0 Hypertensive heart disease with heart failure; J44.9 Chronic obstructive pulmonary disease, unspecified; Z79.01 Long term (current) use of anticoagulants; Z88.6 Allergy status to analgesic agent; Z88.1 Allergy status to other antibiotic agents; Z88.5 Allergy status to narcotic agent; Z88.2 Allergy status to sulfonamides; Z88.7 Allergy status to serum and vaccine; Z88.8 Allergy status to other drugs, medicaments and biological substances; I73.9 Peripheral vascular disease, unspecified
CPT/HCPCS: 36415; 80048; 85025; 85610; 85730; 96365; 96366; 99284; A9270-GY; J2543